=== PATIENT | male | born 1955 | race Asian ===

== ENCOUNTER 2022-03-14 17:25 | Inpatient (IN) | payer OTHER ==
[~2022-03-14] VITALS: Ht 175.3 cm; Wt 97.5 kg
[~2022-03-14 17:25] MED LIST: DESFLURANE 15 MIN GAS INH ONE; DEXAMETHASONE SOD PHOSPHATE 4 MG/ML VIAL ONE; INDOCYANINE GREEN 25 MG VIAL ONE; KETOROLAC TROMETHAMINE 30 MG VIAL ONE; MIDAZOLAM HCL 2 MG/2 ML VIAL (VERSED) ONE; ONDANSETRON HCL 4 MG/2 ML VIAL ONE; PROPOFOL 200MG/ 20ML VIAL (DIPRIVAN) IV ONE; ROCURONIUM BROMIDE 10 MG/ML (ZEMURON) ONE; SUGAMMADEX SODIUM 200 MG/2 ML VIAL IV ONE; fentaNYL CITRATE/PF 100 MCG/2 ML AMP ONE
[2022-03-14 17:31] VITALS: BP_SYST 185
[2022-03-14] MEDS ORDERED: ONDANSETRON HCL 4 MG/2 ML VIAL IVP ONE (18:15)
[2022-03-14] MEDS ORDERED: MORPHINE 4 MG INJ. 4 MG/ML VIAL IVP ONE ×2 (18:15→20:00)
[2022-03-14] MEDS ORDERED: NACL 0.9% 1,000 ML IV ONE (18:15)
[2022-03-14 19:10] LABS: BASOPHILS % (AUTO) 0.5 % (0.0-2.0); EOSINOPHILS % (AUTO) 0.4 % (0.0-4.0); HEMATOCRIT 45.5 % (36-54); HEMOGLOBIN 15.1 g/dL (14.0-18.0); LYMPHOCYTES # (AUTO) 0.8 K/uL (1.0-5.5); LYMPHOCYTES % (AUTO) 7.7 % (20.5-51.5); MEAN CORPUSCULAR HEMOGLOBIN 31 pg (27-31); MEAN CORPUSCULAR HGB CONC 33 % (32-36); MEAN CORPUSCULAR VOLUME 92 fL (79.0-98.0); MONOCYTES # (AUTO) 0.7 K/uL (0.0-1.0); MONOCYTES % (AUTO) 6.8 % (1.7-9.3); NEUTROPHILS # (AUTO) 8.4 K/uL (1.8-7.7); NEUTROPHILS % (AUTO) 84.6 % (40.0-70.0); PLATELET COUNT (AUTO) 225 K/uL (130-430); RED BLOOD CELL COUNT(AUTO) 4.93 MIL/uL (4.2-6.2); RED CELL DISTRIBUTION WIDTH 13.8 % (9.0-15.0)
[2022-03-14 19:17] LABS: CALCIUM 8.9 mg/dL (8.4-11.0); CREATININE 1.1 mg/dL (0.55-1.30)
[2022-03-14 19:20] LABS: ALBUMIN 3.6 g/dL (3.4-4.8); TOTAL BILIRUBIN 0.4 mg/dL (0.0-1.0)
[2022-03-14] MEDS ORDERED: GOLYTELY / COLYTE SOLUTION 4 LITERS ONE (19:36)
[2022-03-14] MEDS ORDERED: ONDANSETRON HCL 4 MG/2 ML VIAL IVP PRN (20:15)
[2022-03-14] MEDS ORDERED: PIPERACILLIN/TAZO 3.375 GM in NS 50 ML IV ONE (20:15)
[2022-03-14] MEDS ORDERED: PIPERACILLIN/TAZOBACTAM 3.375 GM/VIAL (ZOSYN) IV ONE (20:28)
[2022-03-14] MEDS: D5/0.45 NS 1,000 ML IV SCH (20:43)
[2022-03-14 20:55] LABS: PROTHROMBIN TIME 9.7 SECS (9.5-12.5)
[2022-03-14] MEDS: HYDROmorphone 1 MG/ML INJ. CARTRIDGE IVP PRN (22:24)
[2022-03-15] VITALS (8 sets, daily range): BP systolic 127–160
[2022-03-15] MEDS ORDERED: MORPHINE 4 MG INJ. 4 MG/ML VIAL IVP PRN (06:00)
[2022-03-15] MEDS: D5/0.45 NS 1,000 ML IV SCH ×3 (06:26→19:31)
[2022-03-15] MEDS: HYDROmorphone 1 MG/ML INJ. CARTRIDGE IVP PRN ×2 (08:07→13:00)
[2022-03-15 08:25] LABS: BILIRUBIN,URINE NEGATIVE (NEGATIVE); CLARITY/URINE CLEAR (CLEAR); COLOR,URINE YELLOW (YELLOW); GLUCOSE,URINE NEGATIVE (NEGATIVE); KETONES,URINE NEGATIVE (NEGATIVE); LEUKOCYTE ESTERASE ,URINE NEGATIVE (NEGATIVE); NITRITE, URINE NEGATIVE (NEGATIVE); PROTEIN URINE NEGATIVE (NEGATIVE); UROBILINOGEN,URINE 0.2 (0.2-1.0)
[2022-03-15 08:29] LABS: BLOOD, URINE TRACE (NEGATIVE)
[2022-03-15] MEDS ORDERED: GADOTERATE MEGLUMINE 7.5 MMOL/15 ML VIAL IV ONE (08:54)
[2022-03-15 09:40] LABS: BACTERIA,URINE None Seen /HPF (None Seen); MUCUS,URINE 1+ /LPF (None Seen); WBC,URINE NONE SEEN /HPF (0-3)
[2022-03-15] MEDS ORDERED: LR 1,000 ML IV SCH (14:30)
[2022-03-15] MEDS ORDERED: MEPERIDINE HCL/PF 25 MG/ML DISP.SYRIN IVP PRN (14:30)
[2022-03-15] MEDS ORDERED: MIDAZOLAM HCL 2 MG/2 ML VIAL (VERSED) IVP PRN (14:30)
[2022-03-15] MEDS ORDERED: hydrALAZINE HCL 20 MG/ML VIAL IVP PRN (14:30)
[2022-03-15] MEDS ORDERED: METOCLOPRAMIDE HCL 10 MG/2 ML VIAL IVP PRN (14:30)
[2022-03-15] MEDS ORDERED: HYDROmorphone 1 MG/ML INJ. CARTRIDGE IVP PRN ×2 (14:30)
[2022-03-15] MEDS ORDERED: LABETALOL 100 MG/ 20ML VIAL IVP PRN (14:30)
[2022-03-15] MEDS ORDERED: ACETAMINOPHEN I.V. 1000 MG 100 ML IV ONE (14:30)
[2022-03-15] MEDS ORDERED: MAG-AL HYDROX/SIMETH 30 ML UDC PO PRN (16:00)
[2022-03-15] MEDS ORDERED: METOCLOPRAMIDE HCL 10 MG/2 ML VIAL ONE ×2 (16:12→19:05)
[2022-03-15] MEDS: PIPERACILLIN/TAZO 3.375/DEX-IS 50 ML IV SCH ×2 (18:00→23:25)
[2022-03-15] MEDS ORDERED: NALOXONE HCL 0.4 MG/ML AMP (NARCAN) IVP PRN (19:00)
[2022-03-15] MEDS ORDERED: PIPERACILLIN/TAZOBACTAM 3.375 GM/VIAL (ZOSYN) IV ONE (20:57)
[2022-03-16] MEDS ORDERED: METO50TA7 PO (01:23)
[2022-03-16] MEDS ORDERED: LIP40 PO (01:23)
[2022-03-16] MEDS ORDERED: PRO40 PO (01:23)
[2022-03-16] MEDS ORDERED: ZOLP10TA2 PO (01:23)
[2022-03-16] MEDS: MORPHINE 4 MG INJ. 4 MG/ML VIAL IVP PRN (01:24)
[2022-03-16] MEDS: ONDANSETRON HCL 4 MG/2 ML VIAL IVP PRN ×2 (01:24→22:10)
[2022-03-16 01:25] VITALS: BP_SYST 126
[2022-03-16] MEDS: PIPERACILLIN/TAZO 3.375/DEX-IS 50 ML IV SCH ×3 (05:58→12:44)
[2022-03-16] MEDS: D5/0.45 NS 1,000 ML IV SCH ×2 (05:58→22:10)
[2022-03-16] MEDS: HYDROmorphone 1 MG/ML INJ. CARTRIDGE IVP PRN (05:59)
[2022-03-16 09:27] LABS: ALBUMIN 2.8 g/dL (3.4-4.8); CALCIUM 7.8 mg/dL (8.4-11.0); CREATININE 1.19 mg/dL (0.55-1.30); TOTAL BILIRUBIN 0.8 mg/dL (0.0-1.0)
[2022-03-16 09:52] LABS: HEMOGLOBIN 13.1 g/dL (14.0-18.0); LYMPHOCYTES % (AUTO) 6.9 % (20.5-51.5); MEAN CORPUSCULAR HEMOGLOBIN 31 pg (27-31); MEAN CORPUSCULAR HGB CONC 34 % (32-36); MEAN CORPUSCULAR VOLUME 92 fL (79.0-98.0); MONOCYTES % (AUTO) 10.3 % (1.7-9.3); NEUTROPHILS % (AUTO) 82.7 % (40.0-70.0); PLATELET COUNT (AUTO) 180 K/uL (130-430); RED BLOOD CELL COUNT(AUTO) 4.25 MIL/uL (4.2-6.2); RED CELL DISTRIBUTION WIDTH 13.8 % (9.0-15.0); WHITE BLOOD COUNT (AUTO) 10.2 K/uL (4.8-10.8)
[2022-03-16 09:53] LABS: BASOPHILS % (AUTO) 0.1 % (0.0-2.0); LYMPHOCYTES # (AUTO) 0.7 K/uL (1.0-5.5); NEUTROPHILS # (AUTO) 8.4 K/uL (1.8-7.7)
[2022-03-16] MEDS: HYDROcodone/ACETAMIN 5-325 MG TAB (NORCO/ VICODIN) PO PRN ×3 (10:45→20:58)
[2022-03-16 12:30] VITALS: BP_SYST 132
[2022-03-16 20:25] VITALS: BP_SYST 137
[2022-03-17] VITALS: BP_SYST 129
[2022-03-17] MEDS: MORPHINE 4 MG INJ. 4 MG/ML VIAL IVP PRN (01:49)
[2022-03-17 07:33] LABS: BASOPHILS % (AUTO) 0.3 % (0.0-2.0); EOSINOPHILS % (AUTO) 0.2 % (0.0-4.0); HEMATOCRIT 38.4 % (36-54); HEMOGLOBIN 12.9 g/dL (14.0-18.0); LYMPHOCYTES # (AUTO) 0.6 K/uL (1.0-5.5); MEAN CORPUSCULAR HEMOGLOBIN 31 pg (27-31); MEAN CORPUSCULAR HGB CONC 34 % (32-36); MEAN CORPUSCULAR VOLUME 92 fL (79.0-98.0); MONOCYTES % (AUTO) 10.1 % (1.7-9.3); NEUTROPHILS # (AUTO) 8.6 K/uL (1.8-7.7); NEUTROPHILS % (AUTO) 83.4 % (40.0-70.0); PLATELET COUNT (AUTO) 184 K/uL (130-430); RED CELL DISTRIBUTION WIDTH 13.7 % (9.0-15.0); WHITE BLOOD COUNT (AUTO) 10.3 K/uL (4.8-10.8)
[2022-03-17 07:52] LABS: ALBUMIN 2.6 g/dL (3.4-4.8); CALCIUM 7.7 mg/dL (8.4-11.0); CREATININE 1.03 mg/dL (0.55-1.30); TOTAL BILIRUBIN 0.9 mg/dL (0.0-1.0)
[2022-03-17] MEDS: D5/0.45 NS 1,000 ML IV SCH (09:18)
[2022-03-17] MEDS ORDERED: ATORVASTATIN 20 MG TABLET PO ONE (10:15)
[2022-03-17] MEDS ORDERED: METOPROLOL SUCCINATE 50 MG TAB.SR.24H (TOPROL XL) PO ONE (10:15)
[2022-03-17] MEDS ORDERED: PANTOPRAZOLE SODIUM 40 MG TAB PO ONE (10:15)
[2022-03-17] MEDS ORDERED: ACETAMINOPHEN 325 MG TABLET PO PRN (12:00)
[2022-03-17] MEDS ORDERED: AMOX-423 PO (12:21)
[2022-03-17 14:02] VITALS: BP_SYST 143
[2022-03-18] MEDS ORDERED: METOPROLOL SUCCINATE 50 MG TAB.SR.24H (TOPROL XL) PO SCH (09:00)
[2022-03-18] MEDS ORDERED: PANTOPRAZOLE SODIUM 40 MG TAB PO SCH (09:00)
[2022-03-18] MEDS ORDERED: ATORVASTATIN 20 MG TABLET PO SCH (09:00)
== END 2022-03-17 14:45 | disposition home or self-care (01) | DRG 418 ==
LOC: SED 17:25 → SMU 20:09
PROVIDERS: ADMIT Specialist; ATTEND Specialist
PROC: 8E0W4CZ Robotic Assisted Procedure of Trunk Region, Percutaneous Endoscopic Approach (ICD-10-PCS; 2022-03-15)
PROC: BF522Z0 Other Imaging of Gallbladder using Fluorescing Agent, Intraoperative (ICD-10-PCS; 2022-03-15)
PROC: 0FT44ZZ Resection of Gallbladder, Percutaneous Endoscopic Approach (ICD-10-PCS; principal; 2022-03-15 13:43)
DX: K80.00 Calculus of gallbladder with acute cholecystitis without obstruction (principal); K82.1 Hydrops of gallbladder; I10 Essential (primary) hypertension; E78.00 Pure hypercholesterolemia, unspecified; D18.03 Hemangioma of intra-abdominal structures; K76.0 Fatty (change of) liver, not elsewhere classified; Z20.822 Contact with and (suspected) exposure to COVID-19; K42.9 Umbilical hernia without obstruction or gangrene; K66.0 Peritoneal adhesions (postprocedural) (postinfection)
CPT/HCPCS: 36415; 74183; 76700-TC; 80053; 81000; 83690; 83735; 84484; 85025; 85610-TC; 88304; 93005; 96361; 96365; 96375; 96376; 99285; A9575; C1727; J0131; J1100; J1170; J1885; J2270; J2405; J2543; J2704; J2765; J3010; J3465; J3490; J7030; J7060

== ENCOUNTER 2023-04-22 22:35 | Inpatient (IN) | payer OTHER ==
[~2023-04-22] VITALS: Ht 175.3 cm; Wt 78.0 kg
[~2023-04-22 22:35] MED LIST changes: +AMOX-423 PO; -DESFLURANE 15 MIN GAS INH ONE; -DEXAMETHASONE SOD PHOSPHATE 4 MG/ML VIAL ONE; -INDOCYANINE GREEN 25 MG VIAL ONE; -KETOROLAC TROMETHAMINE 30 MG VIAL ONE; +LIP40 PO; +METO50TA7 PO; -MIDAZOLAM HCL 2 MG/2 ML VIAL (VERSED) ONE; -ONDANSETRON HCL 4 MG/2 ML VIAL ONE; +PRO40 PO; -PROPOFOL 200MG/ 20ML VIAL (DIPRIVAN) IV ONE; -ROCURONIUM BROMIDE 10 MG/ML (ZEMURON) ONE; -SUGAMMADEX SODIUM 200 MG/2 ML VIAL IV ONE; +ZOLP10TA2 PO; -fentaNYL CITRATE/PF 100 MCG/2 ML AMP ONE
[2023-04-22 22:42] VITALS: BP_SYST 100; PULSE 96; RESP 22; TEMP 98; O2SAT 94
[2023-04-22] MEDS ORDERED: AMPICILLIN SODIUM/SULBACTAM NA 3 GM in NS 100 ML IV ONE (23:00)
[2023-04-22] MEDS: KETOROLAC TROMETHAMINE 30 MG VIAL IVP ONE (23:09)
[2023-04-22] MEDS: NS 1000 ML IV.SOLN IV ONE (23:10)
[2023-04-22] MEDS: ONDANSETRON HCL 4 MG/2 ML VIAL IVP ONE (23:12)
[2023-04-22 23:34] LABS: BASOPHILS % (AUTO) 0.2 % (0.0-2.0); EOSINOPHILS % (AUTO) 0.1 % (0.0-4.0); HEMATOCRIT 41.7 % (36-54); HEMOGLOBIN 14.2 g/dL (14.0-18.0); LYMPHOCYTES # (AUTO) 0.2 K/uL (1.0-5.5); LYMPHOCYTES % (AUTO) 11.2 % (20.5-51.5); MEAN CORPUSCULAR HEMOGLOBIN 29 pg (27-31); MEAN CORPUSCULAR HGB CONC 34 % (32-36); MEAN CORPUSCULAR VOLUME 86 fL (79.0-98.0); MONOCYTES # (AUTO) 0.1 K/uL (0.0-1.0); MONOCYTES % (AUTO) 2.5 % (1.7-9.3); NEUTROPHILS # (AUTO) 1.8 K/uL (1.8-7.7); PLATELET COUNT (AUTO) 100 K/uL (130-430); RED BLOOD CELL COUNT(AUTO) 4.84 MIL/uL (4.2-6.2); WHITE BLOOD COUNT (AUTO) 2.1 K/uL (4.8-10.8)
[2023-04-22 23:52] LABS: ALBUMIN 2.1 g/dL (3.4-4.8); BILIRUBIN,DIRECT 0.2 mg/dL (0.0-0.3); CALCIUM 8.3 mg/dL (8.4-11.0); CREATININE 1.68 mg/dL (0.55-1.30); INR 1.2 (0.80-1.20); POTASSIUM 4.7 mmol/L (3.5-5.1); TOTAL BILIRUBIN 0.5 mg/dL (0.0-1.0); TOTAL PROTEIN, SERUM 5.8 g/dL (6.4-8.3)
[2023-04-23] VITALS (8 sets, daily range): BP systolic 94–135; PULSE 72–95; RESP 16–18; TEMP 98–103.5; O2SAT 95–98
[2023-04-23 00:01] LABS: BILIRUBIN,URINE 1+ (NEGATIVE); BLOOD, URINE NEGATIVE (NEGATIVE); COLOR,URINE YELLOW (YELLOW); GLUCOSE,URINE NEGATIVE (NEGATIVE); KETONES,URINE TRACE (NEGATIVE); NITRITE, URINE NEGATIVE (NEGATIVE); PH,URINE 5.5 (5.0-8.0); PROTEIN URINE 2+ (NEGATIVE); UROBILINOGEN,URINE 0.2 (0.2-1.0)
[2023-04-23 00:23] LABS: CLARITY/URINE CLOUDY (CLEAR)
[2023-04-23 00:24] LABS: LEUKOCYTE ESTERASE ,URINE TRACE (NEGATIVE); RBC,URINE 0-3 /HPF (0-3)
[2023-04-23 00:25] LABS: BACTERIA,URINE MANY /HPF (None Seen)
[2023-04-23] MEDS ORDERED: PANT40TA45 PO (03:09)
[2023-04-23] MEDS ORDERED: ATOR40TA68 PO (03:09)
[2023-04-23] MEDS ORDERED: METO-542 PO (03:09)
[2023-04-23] MEDS ORDERED: GABA-529 PO (03:09)
[2023-04-23] MEDS: TEMAZEPAM 7.5 MG CAPSULE ONE (04:35)
[2023-04-23] MEDS: D5/0.45 NS 1,000 ML IV ONE (04:50)
[2023-04-23] MEDS: ACETAMINOPHEN 650 MG/20.3 ML UDC GT PRN (06:46)
[2023-04-23] MEDS ORDERED: cefTRIAXone 1 GM VIAL IV SCH (09:00)
[2023-04-23] MEDS: CEFTRIAXONE SOD 1 GM/ D5W 50 ML IV SCH (09:45)
[2023-04-23] MEDS: TEMAZEPAM 7.5 MG CAPSULE PO SCH (21:14)
[2023-04-24] VITALS: BP_SYST 120; PULSE 72; RESP 18; TEMP 98.5; O2SAT 97
[2023-04-24 04:50] VITALS: TEMP 103
[2023-04-24 06:05] LABS: BASOPHILS % (AUTO) 0.4 % (0.0-2.0); HEMATOCRIT 36.3 % (36-54); HEMOGLOBIN 12.2 g/dL (14.0-18.0); LYMPHOCYTES # (AUTO) 0.1 K/uL (1.0-5.5); LYMPHOCYTES % (AUTO) 9.8 % (20.5-51.5); MEAN CORPUSCULAR HEMOGLOBIN 29 pg (27-31); MEAN CORPUSCULAR HGB CONC 34 % (32-36); MEAN CORPUSCULAR VOLUME 85 fL (79.0-98.0); MONOCYTES % (AUTO) 2.6 % (1.7-9.3); NEUTROPHILS % (AUTO) 87.2 % (40.0-70.0); PLATELET COUNT (AUTO) 64 K/uL (130-430); RED BLOOD CELL COUNT(AUTO) 4.25 MIL/uL (4.2-6.2); RED CELL DISTRIBUTION WIDTH 15.9 % (9.0-15.0)
[2023-04-24 06:06] VITALS: TEMP 100
[2023-04-24 06:20] LABS: CALCIUM 7.5 mg/dL (8.4-11.0); CREATININE 1.22 mg/dL (0.55-1.30)
[2023-04-24 07:36] LABS: WHITE BLOOD COUNT (AUTO) 1.1 K/uL (4.8-10.8)
[2023-04-24] MEDS: D5/0.45 NS 1,000 ML IV SCH (10:14)
[2023-04-24] MEDS: CEFTRIAXONE SOD 1 GM/ D5W 50 ML IV SCH (11:05)
[2023-04-24] MEDS: MEROPENEM 500 MG in NS 50 ML IV SCH (11:09)
[2023-04-24] MEDS: DUTASTERIDE 0.5 MG CAPSULE (AVODART) PO ONE (11:25)
[2023-04-24] MEDS: TAMSULOSIN HCL 0.4 MG CAP PO ONE (11:25)
[2023-04-24] MEDS ORDERED: VANCOMYCIN HCL 1.25 GM/NS 250 ML IV SCH (12:00)
[2023-04-24 12:37] VITALS: BP_SYST 101; PULSE 60; RESP 18; TEMP 98.2; O2SAT 94
[2023-04-24] MEDS: CEFEPIME 2 GM in D5W 100 ML IV SCH (13:17)
[2023-04-24 14:56] LABS: COVID19 ANTIGEN SOFIA FIA NEGATIVE (NEGATIVE)
[2023-04-24 15:03] LABS: INFLUENZA TYPE A Negative (NEGATIVE); INFLUENZA TYPE B NEGATIVE (NEGATIVE)
[2023-04-24 16:00] VITALS: BP_SYST 102; PULSE 96; RESP 18; TEMP 97.7; O2SAT 95
[2023-04-24] MEDS: TBO-FILGRASTIM 480 MCG/0.8 ML SYRINGE SUBCUT ONE (17:02)
[2023-04-24 20:00] VITALS: BP_SYST 133; PULSE 102; RESP 18; TEMP 98.5; O2SAT 95
[2023-04-24] MEDS ORDERED: NALOXONE HCL 0.4 MG/ML AMP (NARCAN) IVP PRN (22:30)
[2023-04-24] MEDS: HYDROcodone/ACETAMIN 5-325 MG TAB (NORCO/ VICODIN) PO PRN (23:23)
[2023-04-25 00:04] VITALS: BP_SYST 128; PULSE 103; RESP 18; TEMP 98.9; O2SAT 96
[2023-04-25 07:58] LABS: HEMATOCRIT 37.1 % (36-54); HEMOGLOBIN 12.6 g/dL (14.0-18.0); LYMPHOCYTES # (AUTO) 0.1 K/uL (1.0-5.5); LYMPHOCYTES % (AUTO) 2.4 % (20.5-51.5); MEAN CORPUSCULAR HEMOGLOBIN 29 pg (27-31); MEAN CORPUSCULAR HGB CONC 34 % (32-36); MEAN CORPUSCULAR VOLUME 86 fL (79.0-98.0); MONOCYTES % (AUTO) 0.9 % (1.7-9.3); NEUTROPHILS % (AUTO) 96.7 % (40.0-70.0); PLATELET COUNT (AUTO) 61 K/uL (130-430); RED BLOOD CELL COUNT(AUTO) 4.33 MIL/uL (4.2-6.2); RED CELL DISTRIBUTION WIDTH 16.2 % (9.0-15.0); RETICULOCYTE COUNT 0.1 % (0.5-1.5); WHITE BLOOD COUNT (AUTO) 5.2 K/uL (4.8-10.8)
[2023-04-25 08:00] VITALS: BP_SYST 115; PULSE 122; RESP 18; TEMP 101.1; O2SAT 92
[2023-04-25 08:03] LABS: CALCIUM 7.5 mg/dL (8.4-11.0); CREATININE 1.07 mg/dL (0.55-1.30); POTASSIUM 4.3 mmol/L (3.5-5.1)
[2023-04-25 08:06] LABS: % FREE PSA 13.2 % (.); FREE PSA 0.45 ng/mL; PROSTATE SPECIFIC AG TOTAL 3.4 ng/mL (0.0-4.0)
[2023-04-25 08:18] LABS: TOTAL IRON BIND. CAPACITY 122 ug/dL (250-450)
[2023-04-25] MEDS: TAMSULOSIN HCL 0.4 MG CAP PO SCH (08:24)
[2023-04-25] MEDS: DUTASTERIDE 0.5 MG CAPSULE (AVODART) PO SCH (08:25)
[2023-04-25] MEDS ORDERED: GENTAMICIN IN NACL, ISO-OSM 100 ML IV SCH (11:30)
[2023-04-25 12:00] VITALS: BP_SYST 119; PULSE 110; RESP 18; TEMP 98.9; O2SAT 94
[2023-04-25] MEDS: GENTAMICIN IN NACL, ISO-OSM 100 ML IV SCH (12:05)
[2023-04-25 16:00] VITALS: BP_SYST 121; PULSE 104; RESP 18; TEMP 98.5; O2SAT 95
[2023-04-25 20:05] VITALS: BP_SYST 130; PULSE 121; RESP 18; TEMP 98.5; O2SAT 98
[2023-04-25 20:30] VITALS: O2SAT 98
[2023-04-26 00:19] VITALS: BP_SYST 124; PULSE 125; RESP 18; TEMP 97.5; O2SAT 95
[2023-04-26 05:31] LABS: EOSINOPHILS % (AUTO) 0.1 % (0.0-4.0); HEMATOCRIT 32.8 % (36-54); HEMOGLOBIN 11.1 g/dL (14.0-18.0); LYMPHOCYTES # (AUTO) 0.1 K/uL (1.0-5.5); LYMPHOCYTES % (AUTO) 2.2 % (20.5-51.5); MEAN CORPUSCULAR HEMOGLOBIN 29 pg (27-31); MEAN CORPUSCULAR HGB CONC 34 % (32-36); MEAN CORPUSCULAR VOLUME 86 fL (79.0-98.0); NEUTROPHILS # (AUTO) 3.3 K/uL (1.8-7.7); NEUTROPHILS % (AUTO) 96.7 % (40.0-70.0); PLATELET COUNT (AUTO) 53 K/uL (130-430); RED BLOOD CELL COUNT(AUTO) 3.83 MIL/uL (4.2-6.2); RED CELL DISTRIBUTION WIDTH 15.7 % (9.0-15.0); WHITE BLOOD COUNT (AUTO) 3.4 K/uL (4.8-10.8)
[2023-04-26 05:42] LABS: CALCIUM 7.1 mg/dL (8.4-11.0); CREATININE 1.04 mg/dL (0.55-1.30); POTASSIUM 4.1 mmol/L (3.5-5.1)
[2023-04-26 08:23] VITALS: BP_SYST 126; PULSE 111; RESP 18; TEMP 99.4; O2SAT 94
[2023-04-26 08:28] VITALS: O2SAT 94
[2023-04-26 11:30] VITALS: BP_SYST 121; PULSE 111; RESP 17; TEMP 97.9; O2SAT 95
[2023-04-26] MEDS ORDERED: DUTA0.5C37 PO (12:03)
[2023-04-26] MEDS ORDERED: TAMS0.4C96 PO (12:03)
[2023-04-26] MEDS ORDERED: LEVO-62 PO (12:04)
[2023-04-26 12:33] VITALS: BP_SYST 121; PULSE 111; RESP 17; TEMP 97.9; O2SAT 95
== END 2023-04-26 14:15 | disposition home or self-care (01) | DRG 871 ==
LOC: SED 22:35 → SMU 04-23 02:58 → STU 04-24 18:33
PROVIDERS: ADMIT Specialist; ATTEND Specialist
DX: A41.9 Sepsis, unspecified organism (principal); E43 Unspecified severe protein-calorie malnutrition; N17.0 Acute kidney failure with tubular necrosis; D61.818 Other pancytopenia; N10 Acute pyelonephritis; M54.9 Dorsalgia, unspecified; Z20.822 Contact with and (suspected) exposure to COVID-19; D69.6 Thrombocytopenia, unspecified; E83.52 Hypercalcemia; N40.1 Benign prostatic hyperplasia with lower urinary tract symptoms; K21.9 Gastro-esophageal reflux disease without esophagitis; Z79.899 Other long term (current) drug therapy; Z90.49 Acquired absence of other specified parts of digestive tract; Z68.25 Body mass index [BMI] 25.0-25.9, adult
CPT/HCPCS: 36415; 71045; 72148; 72195; 76376; 80048; 80076; 81000; 81001; 81015; 82150; 83540; 83550; 83605; 83690; 84153; 84484; 85025; 85044; 85610; 85730; 87040; 87086; 93005; 96374; 96375; 99291; G0378; J0692; J0696; J1447; J1580; J1885; J2185; J2405; J3370; J7060